=== PATIENT | male | born 1980 ===

== ENCOUNTER 2019-06-27 12:15 | Emergency (ER) | payer OTHER ==
[2019-06-27 13:46] LABS: ABS Eosinophils 0.1 10^3/ul (0-0.6); ABS Monocytes 0.5 10^3/ul (0-0.8); ABS Neutrophils 6.4 10^3/ul (1.5-7.7); Eosinophil % 0.7 %; Hematocrit 46 % (42-52); Hemoglobin 15.8 g/dL (14.0-18.0); Lymphocyte % 12.8 %; Mean Corpuscular HGB Conc 34 g/dL (31-36); Mean Corpuscular Hemoglobin 30 pg (27-31); Mean Corpuscular Volume 87 fL (80-94); Mean Platelet Volume 9.9 fL (7.4-10.4); Platelet Count 169 10^3/uL (150-450); Red Blood Count 5.31 10^6 /uL (4.18-5.48); Red Cell Distribution Width 14 % (10-15)
[2019-06-27 14:03] LABS: Albumin 4.4 g/dL (3.2-5.2); Albumin/Globulin Ratio 1.5 (1-3); BUN/Creatinine Ratio 19.3 (8-20); C Reactive Protein 1.57 mg/L (<8.01); Calcium 9.6 mg/dL (8.6-10.3); EGFR African American 117.9 (>60); EGFR Non-African American 97.4 (>60); Globulin 2.9 g/dL (2-4); Total Bilirubin 0.5 mg/dL (0.2-1.0); Total Protein 7.3 g/dL (6.4-8.9)
--- OUTSIDE RECORDS SUMMARY | 2019-06-27 14:06 | XMS REPORT | Continuity of Care Document ---
:1980 External Reference #:[id number] Author Name Luis Fernando Roy D.O. 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 Onset: 05/02/2019 Anxiety state Luis Fernando Roy D.O. Onset: 05/02/2019 Recurrent major depressive episodes Luis Fernando Roy D.O. Onset: 05/02/2019 Social History Type Date Description Comments Sex Unknown ETOH Use Occassional Alcohol Recreational Drug Use Former Drug User Exercise Type/Frequency Exercises rarely Sun Exposure Uses sunscreen Seat Belt/Car Seat Seat Belt Use - Yes Allergies, Adverse Reactions, Alerts Active Allergies Reaction Severity Comments Date Penicillin as a child 01/26/2019 Medications Active Medications SIG Qnty Indications Ordering Date Provider Sertraline HCL take 1 tablet by 30tabs F33.9 Luis Fernando Roy, 05/02/2019 25mg mouth one time D.O. Tablets daily Triamcinolone apply thin layer 15gm L40.0 Luis Fernando Roy, 05/02/2019 Acetonide to affected areas D.O. 0.1% Cream three times a day to four times a day after 6 weeks treatment stop for 2 weeks, History Medications No Active Medications Unknown 05/02/2019 - 05/02/2019 Fluconazole 2 tabs on day 1 15tabs B35.6 Luis Fernando Roy, 02/27/2019 - 200mg Tablets the 1 tab daily D.O. 03/13/2019 for 2 weeks. Bupropion take 1 tablet by 90tabs F33.9 Luis Fernando Roy, 02/27/2019 - Hydrochloride ER (XL) mouth every day D.O. 03/01/2019 for smoking 150mg Tablets ER 24HR cessation No Active Medications Unknown 01/26/2019 - 01/26/2019 Nystatin apply topically 15gm B35.6 Luis Fernando Roy, 01/26/2019 - [id number]/GM to affected area D.O. 02/26/2019 Cream two times a day for andrzej infection Ibuprofen 1 cap by mouth 30tabs N45.1 Luis Fernando Roy, 01/26/2019 - 800mg Tablets three times a day D.O. 02/05/2019 Levofloxacin 1 by mouth every 10tabs N45.1 Luis Fernando Roy, 01/26/2019 - 500mg day x 10 days D.O. 02/26/2019 Tablets Immunizations CPT Code Status Date Vaccine Lot # [id number] Given 01/26/2019 Influenza Virus Vaccine, Quadrivalent, Split, [id number] Preservative Free Vital Signs Date Vital Result Comment 05/02/2019 9:07am BP Systolic 102 mmHg BP Diastolic 70 mmHg Weight 172.00 lb 02/27/2019 10:58am BP Systolic 102 mmHg BP Diastolic 78 mmHg Weight 172.00 lb w/shoes Results Test Acquired Date Facility Test Result H/L Range Note CBC Auto 01/27/2019 [facility] White Blood 4.9 10^3/uL Normal 3.5- 10.8 Diff [phone] Count Red Blood Count 5.09 10^6/uL Normal 4.18-5.48 Hemoglobin 15.3 g/dL Normal 14.0-18.0 Hematocrit 44 % Normal 42-52 Mean Corpuscular Volume 87 fL Normal 80-94 Mean Corpuscular Hemoglobin 30 pg Normal 27-31 Mean Corpuscular HGB Conc 35 g/dL Normal 31-36 Red Cell Distribution Width 14 % Normal 10-15 Platelet Count 172 10^3/uL Normal 150-450 Mean Platelet Volume 10.7 fL High 7.4-10.4 Abs Neutrophils 3.1 10^3/uL Normal 1.5-7.7 Abs Lymphocytes 1.0 10^3/uL Normal 1.0-4.8 Abs Monocytes 0.7 10^3/uL Normal 0-0.8 Abs Eosinophils 0.1 10^3/uL Normal 0-0.6 Abs Basophils 0.0 10^3/uL Normal 0-0.2 Abs Nucleated RBC 0.0 10^3/uL Granulocyte % 62.9 % Lymphocyte % 20.7 % Monocyte % 13.9 % Eosinophil % 2.0 % Basophil % 0.5 % Nucleated Red Blood Cells % 0.1 Comp Metabolic Panel 01/27/2019 [facility] Sodium 138 mmol/L Normal 135-145 [phone] Potassium 4.5 mmol/L Normal 3.5-5.0 Chloride 105 mmol/L Normal 101-111 Co2 Carbon Dioxide 30 mmol/L Normal 22-32 Anion Gap 3 mmol/L Normal 2-11 Glucose 82 mg/dL Normal 70-100 Blood Urea Nitrogen 25 mg/dL High 6-24 Creatinine 1.00 mg/dL Normal 0.67-1.17 BUN/Creatinine Ratio 25.0 High 8-20 Calcium 9.1 mg/dL Normal 8.6-10.3 Total Protein 6.5 g/dL Normal 6.4-8.9 Albumin 4.2 g/dL Normal 3.2-5.2 Globulin 2.3 g/dL Normal 2-4 Albumin/Globulin Ratio 1.8 Normal 1-3 Total Bilirubin 0.60 mg/dL Normal 0.2-1.0 Alkaline Phosphatase 57 U/L Normal 34-104 Alt 10 U/L Normal 7-52 Ast 13 U/L Normal 13-39 Egfr Non- 84.1 >60 Egfr 101.7 >60 1 Lipid Profile (Trig/Chol/HDL) 01/27/2019 [facility] Triglycerides 51 mg /dL 2 [phone] Cholesterol 156 mg/dL 3 HDL Cholesterol 49.6 mg/dL 4 LDL Cholesterol 96 mg/dL 5 Laboratory test 01/27/2019 [facility] Magnesium 2.0 mg/dL Normal 1.9- 2.7 finding [phone] PSA Screening 0.577 ng/mL Normal 0-4.000 6 TSH (Thyroid Stim Horm) 1.88 mcIU/mL Normal 0.34-5.60 Vitamin B12 441 pg/mL Normal 180-914 7 Hemoglobin A1c (Glyco HGB) 5.6 % Normal 4.0-5.6 8 1 Because ethnic data is not always readily available, this report includes an eGFR for both -Americans and non- Americans. The National Kidney Disease Education Program (NKDEP) does not endorse the use of the MDRD equation for patients that are not between the ages of 18 and 70, are , have extremes of body size, muscle mass, or nutritional status, or are non- or non-. According to the National Kidney Foundation, irrespective of diagnosis, the stage of the disease is based on the level of kidney function: Stage Description GFR(mL/min/1.73 m(2)) 1 Kidney damage with normal or decreased GFR 90 2 Kidney damage with mild decrease in GFR 60-89 3 Moderate decrease in GFR 30-59 4 Severe decrease in GFR 15-29 5 Kidney failure <15 (or dialysis) 2 Desirable: <150 Borderline High: 150-199 High: 200-499 Very High: >500 3 Desirable: <200 Borderline High: 200-239 High: >239 4 Low: <40 Desirable: 40-60 High: >60 5 Desirable: <100 Near Optimal: 100-129 Borderline High: 130-159 High: 160-189 Very High: >189 6 Serum levels of PSA measured using the [employer] DXI Hybritech immunoassay should not be interpreted as absolute evidence of the presence or absence of disease. The PSA value should be used in conjunction with other pertinent clinical diagnostic procedures. A PSA value in the range of 0.1 to 0.6 ng/ml is indeterminate if being used as an indicator of recurrent or residual disease. The values obtained with different assay methods or kits cannot be used interchangeably. 7 Normal Range 180 to 914 Indeterminate Range 145 to 180 Deficient Range <145 8 Therapeutic target for the treatment of diabetes mellitus patients is <7% HBA1C, and in selective patients <6.0%. Please refer to [employer] diabetic care guidelines for further information. Procedures Description No Information Available Medical Devices Description No Information Available Encounters Type Date Location Provider Dx Diagnosis Office Visit 05/02/2019 8:55a Main Office Luis Fernando Roy D.O. B35.6 Tinea cruris F33.9 Major depressive disorder, recurrent, unspecified Z80.7 Fam hx of malig neoplm of lymphoid, hematpoetc and rel tiss F41.9 Anxiety disorder, unspecified R05 Cough L40.0 Psoriasis vulgaris Office Visit 02/27/2019 10:15a Main Office Sopchak, Luis Fernando, D.O. B35.6 Tinea cruris N45.1 Epididymitis F33.9 Major depressive disorder, recurrent, unspecified Z80.7 Fam hx of malig neoplm of lymphoid, hematpoetc and rel tiss F41.9 Anxiety disorder, unspecified Office Visit 01/26/2019 11:45a Main Office Luis Fernando Roy, R50.9 Fever, unspecified D.O. N45.1 Epididymitis F33.9 Major depressive disorder, recurrent, unspecified B35.6 Tinea cruris Z23 Encounter for immunization Z80.7 Fam hx of malig neoplm of lymphoid, hematpoetc and rel tiss Z68.21 Body mass index (BMI) 21.0-21.9, adult Assessments Date Code Description Provider 05/02/2019 B35.6 Tinea cruris Ashley Royon, D.O. 05/02/2019 F33.9 Major depressive disorder, recurrent, [place] Luis Fernando, D.O. unspecified 05/02/2019 Z80.7 Family history of other malignant neoplasms of Ashley Royon, D.O. lymphoid, hematopoietic and related tissues 05/02/2019 F41.9 Anxiety disorder, unspecified Patyk Luis Fernando, D.O. 05/02/2019 R05 Cough Kirill Luis Fernando, D.O. 05/02/2019 L40.0 Psoriasis vulgaris Kirill Luis Fernando, D.O. 02/27/2019 B35.6 Tinea cruris Ashley Royon, D.O. 02/27/2019 N45.1 Epididymitis Ashley Royon, D.O. 02/27/2019 F33.9 Major depressive disorder, recurrent, [place] Luis Fernando, D.O. unspecified 02/27/2019 Z80.7 Family history of other malignant neoplasms of Ashley Royon, D.O. lymphoid, hematopoietic and related tissues 02/27/2019 F41.9 Anxiety disorder, unspecified [place] Luis Fernando, D.O. 01/26/2019 R50.9 Fever, unspecified PatykAshleyon, D.O. 01/26/2019 N45.1 Epididymitis Ashley Royon, D.O. 01/26/2019 F33.9 Major depressive disorder, recurrent, Luis Fernando Roy D.O. unspecified 01/26/2019 B35.6 Tinea cruris Luis Fernando Roy D.O. 01/26/2019 Z23 Encounter for immunization Luis Fernando Roy D.O. 01/26/2019 Z80.7 Family history of other malignant neoplasms of Luis Fernando Roy D.O. lymphoid, hematopoietic and related tissues 01/26/2019 Z68.21 Body mass index (BMI) 21.0-21.9, adult Luis Fernando Roy D.O. Plan of Treatment Future Appointment(s):07/03/2019 9:45 am - Luis Fernando Roy D.O. at Main Ufhphs9608/17/2019 2:00 pm - Luis Fernando Roy D.O. at Main Rkrmch7005/02/2019 - Luis Fernando Roy D.O.B35.6 Tinea crurisComments:any fungal component is likely resolved rash today is psoriaform in appearance.F33.9 Major depressive disorder , recurrent, unspecifiedNew Medication:Sertraline HCL 25 mg - take 1 tablet by mouth one time dailyFollow up:2 months depression/anxiety with ALTA 7 and FHU6M35.7 Family history of other malignant neoplasms of lymphoid, hematopoietic and related cvijdinS32.9 Anxiety disorder, [id number] YnuqyR55.0 Psoriasis vulgarisNew Medication:Triamcinolone Acetonide 0.1 % - apply thin layer to affected areas three times a day to four times aday after 6 weeks treatment stop for 2 weeks, Functional Status Description No Information Available Mental Status Description No Information Available Referrals Description No Information Available
--- NOTE | 2019-06-27 15:28 | ED ---
Complex/Multi-Sys Presentation - HPI Summary HPI Summary: Patient is a 39 y/o M presenting to [facility] with complaints of right-side lower rib pain with cough and RUQ pain. He states that the rib pain has been present for the past week with his cough. This morning, he states that he experienced onset of pain at his RUQ that he characterizes as a muscle spasm. Pain is reported to come in waves and episodes of pain last seconds. He denies N/V and fever but notes that he felt light-headed earlier today. PMHx of blood clots denied. He notes long-distance travel to [place] around [place] time but no other recent travel noted. He denies PMHx of blood clots, pain/swelling at BLE, and hormone therapy. No Hx of HTN and diabetes. Patient states that he is on an anti-depressant. NKDA reported. He consumes alcohol occasionally and notes that he drank last evening. He had caffeine this morning but denies treating his Sx with any medications. Home medications and allergies are reviewed. - History Of Current Complaint Chief Complaint: EDChestWallPain Time Seen by Provider: 06/27/19 15:20 Hx Obtained From: Patient Onset/Duration: Lasting Hours, Lasting Weeks Timing: Intermittent, Lasting: Location: Pain At: - RUQ and right lower ribs Character: Throbbing - muscle spasm Aggravating Factor(s): rib pain with cough Associated Signs And Symptoms: Positive: Dizziness - light-headedness, Cough, Abdominal Pain, Other - positive - rib pain with cough; negative - BLE edema and pain. Negative: Nausea, Vomiting, Fever - Allergies/Home Medications Allergies/Adverse Reactions: Allergies Allergy/AdvReac Type Severity Reaction Status Date / Time No Known Allergies Allergy Verified 06/27/19 12:28 Home Medications: Home Medications Ibuprofen TAB* [Advil TAB*] 200 mg PO Q6H PRN 06/27/19 [History Confirmed ] Sertraline* [Zoloft*] 25 mg PO DAILY 06/27/19 [History Confirmed 06/27/19] PMH/Surg Hx/FS Hx/Imm Hx Endocrine/Hematology History: Denies: Hx Diabetes Cardiovascular History: Denies: Hx Embolism, Hx Hypertension Psychiatric History: Reports: Hx Depression Infectious Disease History: No Infectious Disease History: Denies: Traveled Outside the [place] in Last 30 Days - Family History Known Family History: Negative: Blood Disorder - Social History Alcohol Use: Occasionally Substance Use Type: Reports: None Smoking Status (MU): Former Smoker Review of Systems Negative: Fever Positive: Cough Positive: Abdominal Pain. Negative: Vomiting, Nausea Musculoskeletal: Other - positive - right lower rib pain with cough Negative: Myalgia - BLE, Edema - BLE Neurological: Other - positive - light-headedness All Other Systems Reviewed And Are Negative: Yes Physical Exam - Summary Physical Exam Summary: Constitutional: Well-developed, Well-nourished, Alert. (-) Distressed Skin: Warm, Dry HENT: Normocephalic; Atraumatic Eyes: Conjunctiva normal Neck: Musculoskeletal ROM normal neck. (-) JVD, (-) Stridor, (-) Tracheal deviation Cardio: Rhythm regular, rate normal, Heart sounds normal; Intact distal pulses; Radial pulses are 2+ and symmetric. (-) Murmur Pulmonary/Chest wall: Effort normal. (-) Respiratory distress, (-) Wheezes, (-) Rales Abd: Soft, (+) RUQ tenderness, (-) Distension, (-) Guarding, (-) Rebound Musculoskeletal: (-) Edema Lymph: (-) Cervical adenopathy Neuro: Alert, Oriented x3 Psych: Mood and affect Normal Triage Information Reviewed: Yes Vital Signs On Initial Exam: Initial Vitals Temp Pulse Resp BP Pulse Ox 97.4 F 97 18 144/88 100 06/27/19 12:24 06/27/19 12:24 06/27/19 12:24 06/27/19 12:24 06/27/19 12:24 Vital Signs Reviewed: Yes Procedures - Sedation Patient Received Moderate/Deep Sedation with Procedure: No Diagnostics - Vital Signs Vital Signs Temp Pulse Resp BP Pulse Ox 06/27/19 14:30 99.3 F 79 18 114/71 97 06/27/19 12:24 97.4 F 97 18 144/88 100 - Laboratory Lab Results: Lab Results 06/27/19 06/27/19 Range/Units 13:32 13:32 WBC 8.0 (3.5-10.8) 10^3/uL RBC 5.31 (4.18-5.48) 10^6 /uL Hgb 15.8 (14.0-18.0) g/dL Hct 46 (42-52) % MCV 87 (80-94) fL MCH 30 (27-31) pg MCHC 34 (31-36) g/dL RDW 14 (10-15) % Plt Count 169 (150-450) 10^3/uL MPV 9.9 (7.4-10.4) fL Neut % (Auto) 79.7 % Lymph % (Auto) 12.8 % [place] % (Auto) 6.5 % Eos % (Auto) 0.7 % Baso % (Auto) 0.3 % Absolute Neuts (auto) 6.4 (1.5-7.7) 10^3/ul Absolute Lymphs (auto) 1.0 (1.0-4.8) 10^3/ul Absolute Monos (auto) 0.5 (0-0.8) 10^3/ul Absolute Eos (auto) 0.1 (0-0.6) 10^3/ul Absolute Basos (auto) 0.0 (0-0.2) 10^3/ul Absolute Nucleated RBC 0.0 10^3/ul Nucleated RBC % 0.0 Sodium 136 (135-145) mmol/L Potassium 4.0 (3.5-5.0) mmol/L Chloride 101 (101-111) mmol/L Carbon Dioxide 30 (22-32) mmol/L Anion Gap 5 (2-11) mmol/L BUN 17 (6-24) mg/dL Creatinine 0.88 (0.67-1.17) mg/dL Est GFR ( Amer) 117.9 (>60) Est GFR (Non-Af Amer) 97.4 (>60) BUN/Creatinine Ratio 19.3 (8-20) Glucose 130 H (70-100) mg/dL Calcium 9.6 (8.6-10.3) mg/dL Total Bilirubin 0.50 (0.2-1.0) mg/dL AST 14 (13-39) U/L ALT 10 (7-52) U/L Alkaline Phosphatase 70 (34-104) U/L C-Reactive Protein 1.57 (<8.01) mg/L Total Protein 7.3 (6.4-8.9) g/dL Albumin 4.4 (3.2-5.2) g/dL Globulin 2.9 (2-4) g/dL Albumin/Globulin Ratio 1.5 (1-3) Result Diagrams: 06/27/19 13:32 06/27/19 13:32 Lab Statement: Any lab studies that have been ordered have been reviewed, and results considered in the medical decision making process. - Radiology CXR Radiology Interpretation Completed By: Radiologist Summary of Radiographic Findings: IMPRESSION: HYPERINFLATION. NO ACTIVE CARDIOPULMONARY DISEASE. THIS REPORT WAS REVIEWED BY ED PHYSICIAN. - EKG 1613 Cardiac Rate: NL - rate of 77 BPM EKG Rhythm: Sinus Rhythm Summary of EKG Findings: EKG showed NSR with rate of 77 BPM, No STEMI. ED physician has reviewed and interpreted this EKG. Complex Multi-Symp Course/Dx Course Of Treatment: Patient is here with a week of right-sided rib pain that hurts when he coughs. Patient's rib pain went away and his pain migrated to his right upper quadrant. Patient's pain is only present when he moves or coughs. Patient has several quadrant tenderness. Patient had blood work performed which showed no elevated LFTs, lipase, alkaline phosphatase, CRP. Patient had negative chest x-ray and EKG. Patient is troponin. Given patient' s symptoms occur only with movements and on his abdominal musculature, patient is likely suffering from a musculature issue. Patient is given Motrin and discharged on Flexeril and heating pads - Diagnoses Provider Diagnoses: RUQ pain Discharge ED - Sign-Out/Discharge Documenting (check all that apply): Patient Departure - discharge - Discharge Plan Condition: Stable Disposition: HOME Prescriptions: Cyclobenzaprine TAB* [Flexeril 10 MG TAB*] 10 mg PO BID PRN #12 tab PRN Reason: muscle spasm Patient Education Materials: Muscle Spasm (ED) Referrals: Luis Fernando Roy DO [Primary Care Provider] - 3 Days Additional Instructions: Follow up with your primary care physician within three days. Take Motrin 600 mg every six hours for pain. Use your prescribed muscle relaxer as needed. Apply heat to affected area. Please return to ED for constant pain, difficulty breathing, or any other concerning symptoms. - Billing Disposition and Condition Condition: STABLE Disposition: Home - Attestation Statements Document Initiated by Scribe: Yes Documenting Scribe: KREEN DUVALL Provider For Whom Scribe is Documenting (Include Credential): PATRICK PÉREZ MD Scribe Attestation: KEREN Munoz, scribed for PATRICK PÉREZ MD on 06/27/19 at 2018. Scribe Documentation Reviewed: Yes Provider Attestation: The documentation as recorded by the [email or web address] accurately reflects the service I personally performed and the decisions made by me, PATRICK PÉREZ MD Status of Scribe Document: Viewed
[2019-06-27] MEDS ORDERED: Ibuprofen TAB* 600 MG PO ONE (15:32)
[2019-06-27] MEDS ORDERED: Cyclobenzaprine TAB* 10 MG PO ONE (16:41)
[2019-06-27 17:06] VITALS: BP 123/84
== END 2019-06-27 17:10 | disposition home or self-care (01) ==
LOC: ED 12:15
DX: R10.11 Right upper quadrant pain (principal); R07.81 Pleurodynia; R05 Cough; R42 Dizziness and giddiness; F32.9 Major depressive disorder, single episode, unspecified; Z87.891 Personal history of nicotine dependence
CPT/HCPCS: 36415; 71046; 80053; 83690; 85025; 86140; 93005; 99283; A9270-GY